=== PATIENT | male | born 1950 | race Caucasian/White ===

== ENCOUNTER 2016-12-25 07:53 | Outpatient (CLI) | payer MEDICARE, BC ==
[~2016-12-25] VITALS: Ht 177.8 cm; Wt 168.2 kg
--- NOTE | ~2016-12-25 | HEMODYNAMI ---
PATIENT:BARRERA WEEKS MEDICAL RECORD: [id number] : 52 LOCATION:D.CAT ADMISSION DATE: 12/25/16 Generatedon:12/25/201610:42 Patient name: BARRERA WEEKS Patient #: [id number] : 1950 Date of study: 12/25/2016 Page: Of Hemodynamic Procedure Report Patient Data Patient Demographics Procedure consent was obtained First Name: BARRERA Gender: Male Last Name: MICKY : 1950 Patient #: [id number] Age: 66 year(s) Race: SSN: [id number] Additional ID: [id number] Contact details [address]: [address] [place] [address] State: [place] City: [place] Zip code: [address] Past Medical History History of disease Date Diagnosis Comments CAD Hypertension PVD Admission Admission Data Admission Date: 12/25/2016 Admission Time: 7:53 Arrival Date: 12/25/2016 Arrival Time: 10:00 Admit Source: Other Insurance Payor: Medicare Height (in.): 70 BSA: 2.71 (m2) Height (cm.): 177.8 BMI: 53.09 (kg/m2) Weight (lbs.): 370 Weight (kg.): 167.83 Lab Results Lab Result Date: 12/25/2016 Lab Result Time: 0:00 Biochemistry Name Units Result Min Max BUN mg/dl 16 --(---*)-- 7 18 CK-MB ng/ml 3 --(---*)-- 0 3.6 Creatinine mg/dl 1 --(--*-)-- 0.6 1.3 Creatinine l 344 --(----)-* 21 215 Kinase Troponin l ng/ml 0.017 --(-*--)-- 0 0.06 CBC Name Units Result Min Max Hemoglobin g/dl 14.7 --(-*--)-- 13.5 17.5 Procedure Procedure Types Cath Procedure Diagnostic Procedure [facility] w/Coronaries Miscellaneous Procedures Moderate Sedation up to 15 minutes Procedure Description Procedure Date Procedure Date: 12/25/2016 Procedure Start Time: 10:32 Procedure End Time: 10:41 Procedure Staff Name Function Kristian Woodward MD Performing Physician Leena Eugene RT Scrub Dee Dee Reyes RN Nurse Adam Prakash RT Monitor Indication Angina Procedure Data Cath Procedure Fluoroscopy Diagnostic fluoroscopy Total fluoroscopy Time: 1.3 time: 1.3 min min Diagnostic fluoroscopy Total fluoroscopy dose: 982 dose: 982 mGy mGy Contrast Material Contrast Material Type Amount (ml) Isovue 300 77 Entry Location Entry Primary Successful Side Size Upsize Upsize Entry Closure Succes sful Closure Location (Fr) 1 (Fr) 2 (Fr) Remarks Device Remarks Femoral Right 5 Fr Exoseal artery Diagnostic catheters Device Type Used For End Catheter Placement Cordis 5Fr Pigtail LV Angiography Catheter (MP) Cordis 5Fr JL 4.0 Left Coronary Catheter (MP) Angiography Cordis 5Fr 3DRC Catheter Right Coronary (MP) Angiography Procedure Complications No complications Procedure Medications Medication Administration Route Dosage Oxygen NC 2 l/min Lidocaine 2% added to field 20 Heparin Flush Bag added to field 2 bags (1000units/500ml NS) 0.9% NaCl I.V. 100 ml/hr Versed I.V. 1 mg Fentanyl I.V. 50 mcg Versed I.V. 1 mg Fentanyl I.V. 50 mcg Versed I.V. 1 mg Fentanyl I.V. 50 mcg Hemodynamics Rest BSA: 2.71 (m2) HGB: 14.7 (g/dl) O2 Consumption: Estimated: 309.83 (ml/min) O2 Co nsumption indexed: Estimated:114.33 (ml/min/m) Heart Rate: 64 (bpm) Snapshots Pre Cath Intra NCS Post Cath Vital Signs Time Heart Resp SPO2 NIBP (mmHg) Rhythm Pain Sedation Rate (ipm) (%) Status Level (bpm) 10:17:14 80 16 97 No Cuff NSR 0 (11) 10(A) , No pain 10:21:14 75 18 98 No Cuff NSR 0 (11) 10(A) , No pain 10:25:42 77 17 94 141/75(97) NSR 0 (11) 10(A) , No pain 10:30:21 79 15 93 135/75(94) NSR 0 (11) 9(A) , No pain 10:34:59 81 22 94 135/72(103) NSR 0 (11) 9(A) , No pain 10:39:34 86 15 94 143/80(98) NSR 0 (11) 10(A) , No pain Medications Time Medication Route Dose Verified Delivered Reason Notes Effe ctiveness by by 10:22:43 Oxygen NC 2 Kristian Buffie used for l/min Trace Reyes RN procedure 10:22:54 Lidocaine 2% added 20ml Kristian Kristian for local to vial Trace Woodward MD anesthetic field 10:23:00 Heparin Flush added 2 Rkistian Kristian used for Bag to bags Trace Woodward MD procedure (1000units/500ml field NS) 10:23:09 0.9% NaCl I.V. 100 Kristian Buffie Per ml/hr Trace Reyes RN physician 10:26:44 Versed I.V. 1 mg Kristian Funez for Trace Reyes RN sedation 10:26:50 Fentanyl I.V. 50 Kristian Buffie for mcg Traec Reyes RN sedation 10:29:20 Versed I.V. 1 mg Kristian Buffie for Trace Reyes RN sedation 10:29:24 Fentanyl I.V. 50 Kristian Buffie for mcg Trace Reyes RN sedation 10:32:44 Versed I.V. 1 mg Kristian Buffie for Trace Reyes RN sedation 10:32:48 Fentanyl I.V. 50 Kristian Buffie for mcg Trace Reyes RN sedation Procedure Log Time Note 10:07:31 Informed consent obtained and on chart 10:07:36 Diagnostic Cath Status : Elective 10:08:38 Indication : Angina 10:08:42 Adam Prakash RT(R) sent for patient. Start room use. 10:08:43 Time tracking: Regular hours 10:08:47 Plan of Care:Hemodynamics will remain stable., Cardiac rhythm will remain stable., Comfort level will be maintained., Respiratory function will remain adequate., Patient/ family verbilizes understanding of procedure., Procedure tolerated without complication., Recovers from procedure without complications.. 10:09:01 Admit Source: Other 10:09:04 Patient Height : 177.8 cm 10:09:09 Patient Weight : 167.83 kg 10:09:16 Arrival Date: 12/25/2016 10:00:00 AM 10:09:28 Insurance Payor : Medicare 10:10:54 Patient received from Pre/Post Procedure Room to CCL 2 Alert and oriented. Tansferred to table in Supine position. 10:10:55 Warm blankets applied, and efrain hugger turned on for patient comfort. 10:10:55 Correct patient and procedure confirmed by team. 10:10:56 ECG and BP/O2 sat monitors applied to patient. 10:16:24 Vital chart was started 10:16:25 Baseline sample Acquired. 10:16:32 Full Disclosure recording started 10:16:38 H&P Date Dictated: 12/18/2016 Within 30 days and on chart., H&P Addendum completed by physician on day of procedure. (MUST COMPLETE FOR ALL OUTPATIENTS). 10:16:41 Pre-procedure instructions explained to patient. 10:16:41 Pre-op teaching completed and patient verbalized understanding. 10:16:43 Family in waiting room. 10:16:44 Patient NPO since Midnight. 10:16:50 Is the patient allergic to Iodine/contrast media? No. 10:16:52 Was the patient premedicated? No 10:22:37 Is patient on blood thinner?Yes 10:22:42 ACC The patient was administered the following blood thiners within the last 24 hours: ACCPlavix 10:22:43 Oxygen 2 l/min NC was administered by Dee Dee Reyes RN; used for procedure; 10:22:44 Patient diabetic? No. 10:22:48 ----Pre-sedation anethsthesia assessment.---- 10:22:51 Previous problem with sedation/anesthesia? No ? 10:22:52 Snore? Yes 10:22:53 Sleep apnea? Yes 10:22:54 Lidocaine 2% 20ml vial added to field was administered by Kristian Woodward MD; for local anesthetic; 10:22:54 Deviated septum? No 10:22:55 Opens mouth fully? Yes 10:22:56 Sticks out tongue? Yes 10:22:58 Airway obstruction? No ? 10:23:00 Heparin Flush Bag (1000units/500ml NS) 2 bags added to field was administered by Kristian Woodward MD; used for procedure; 10:23:00 Dentures? No ? 10:23:02 Pre procedure: right dorsailis pedis pulse 1+ Palpable, but thready & weak; easily obliterated 10:23:05 Patient pain scale 0/10 ?. 10:23:09 0.9% NaCl 100 ml/hr I.V. was administered by Dee Dee Reyes RN; Per physician; 10::10 IV patent on arrival in left hand with 0.9% NaCl at 10ml/hr. 10::43 Right groin area was prepped with chlora-prep and draped in sterile fashion 10:: Alarms reviewed by R. N. :: Sharps counted by scrub and verified by R.N. 10::51 --------ALL STOP TIME OUT------ ::51 Final Timeout: patient, procedure, and site verified with staff and physician. All members of the team are in agreement. 10::53 Right groin site verified by team. 10::00 Physical assessment completed. ASA score P 3 - A patient with severe systemic disease as per Kristian Woodward MD. 10::10 Sedation plan: IV Moderate Sedation Versed, Fentanyl 10::44 Versed 1 mg I.V. was administered by Dee Dee Reyes RN; for sedation; 10::50 Fentanyl 50 mcg I.V. was administered by Dee Dee Reyes RN; for sedation; 10:27:00 Lab Result : BUN 16 mg/dl 10::00 Lab Result : Creatinine 1 mg/dl 10::00 Lab Result : Creatinine Kinase 344 l 10:27:00 Lab Result : CK-MB 3 ng/ml 10::00 Lab Result : Troponin l 0.017 ng/ml 10::00 Lab Result : Hemoglobin 14.7 g/dl 10::20 Versed 1 mg I.V. was administered by Dee Dee Reyes RN; for sedation; 10:29:20 Use device set Femoral Dx 10:29:21 Acist Syringe opened to sterile field. 10:: Bag Decanter opened to sterile field. 10:: Medline Cath Pack opened to sterile field. 10:29:22 Terumo 5Fr [place] Sheath opened to sterile field. 10:29:23 St Richard 260cm J .035 wire opened to sterile field. 10:29:23 Acist Hand Control opened to sterile field. 10:29:24 Fentanyl 50 mcg I.V. was administered by Dee Dee Reyes RN; for sedation; 10:29:24 Acist Manifold opened to sterile field. 10:29:24 Diagnostic Infinity 5Fr Multipack catheter opened to sterile field. 10:29:25 Tegaderm 4 x 4 opened to sterile field. 10:30:53 Zero performed for pressure channel P1 10:31:18 Procedure started. 10:32:42 Local anesthetic to right femoral artery with Lidocaine 2% by Kristian Woodward MD.INITIAL ACCESS ONLY 10:32:44 Versed 1 mg I.V. was administered by Dee Dee Reyes RN; for sedation; 10:32:48 Fentanyl 50 mcg I.V. was administered by Dee Dee Reyes RN; for sedation; 10:32:50 A 5 Fr sheath was inserted into the Right Femoral artery 10:32:55 A Cordis 5Fr Pigtail Catheter (MP) was advanced over the wire and used for LV Angiography. 10:32:58 LV angiography performed. 10:33:03 EF : 55 % 10:33:05 Catheter removed. 10:33:09 A Cordis 5Fr JL 4.0 Catheter (MP) was advanced over the wire and used for Left Coronary Angiography. 10:33:27 LCA angiography performed. 10:33:37 Baseline sample Acquired. 10:33:43 Rhythm: sinus rhythm 10:34:40 Catheter removed. 10:34:46 A Cordis 5Fr 3DRC Catheter (MP) was advanced over the wire and used for Right Coronary Angiography. 10:35:13 RCA angiography performed. 10:36:09 Catheter removed. 10:36:38 Cordis 5Fr Exoseal opened to sterile field. 10:36:52 Sheath removed intact; hemostasis achieved with Exoseal to the Right Femoral artery. 10:36:53 Procedure ended.(Physican Out) 10:37:05 Contrast amount:Isovue 300 77ml. 10:37:12 Fluoroscopy time 01.30 minutes. 10:37:17 Fluoroscopy dose: 982 mGy 10:37:17 Flurop Dose total: 982 10:38:07 Sharps counted by scrub and verified by R.N. 10:38:08 Insertion/operative site no bleeding no hematoma. 10:38:12 Post-op/insertion site Right Femoral artery dressed using a 4 x 4 and Tegaderm. 10:38:15 Post right femoral artery:stable 10:38:16 Post Procedure Pulses reassessed and unchanged 10:38:18 Post procedure: right dorsailis pedis pulse 1+ Palpable, but thready & weak; easily obliterated. 10:38:21 Post procedure rhythm: sinus rhythm 10:38:23 Post procedure instruction explained to patient.Patient verbalizes understanding. 10:38:41 Procedure type changed to Cath procedure, Diagnostic procedure, LHC, LHC w/Coronaries, Miscellaneous Procedures, Moderate Sedation up to 15 minutes 10:38:57 Procedure and supply charges have been captured, reviewed, submitted and are correct. 10:39:01 Procedure Complication : No complications 10:39:03 Vital chart was stopped 10:39:03 See physician's report for complete and final results. 10:39:05 Report given to Pre/Post Procedure Room. 10:39:08 Patient transfered to Pre/Post Procedure Room with Stretcher. 10:41:45 Procedure ended. 10:41:45 Full Disclosure recording stopped 10:41:50 End room use (Document Last) Device Usage Item Name Manufacture Quantity Catalog Hospital Part Current Minimal Lo t# / Number Charge Number Stock Stock Serial# Code Acist Acist 1 84770 [id number] 195557 [id number] 20 Syringe [employer] Bag Microtek 1 2002S 867182 03549 208300 5 Decfake company 2.0 [employer] Inc. Medline Cardinal 1 [id number] 089537 01259 040816 5 Cath Pack Health Terumo 5Fr Terumo 1 [id number] 739252 582768 206284 [address] [place] [address] Richard 1 716009 291245 965409 704742 30 260cm J .035 wire Acist Hand Acist 1 26126 344003 887178 968260 5 Control Medical [employer] Inc Acist Acist 1 41323 202404 104977 747837 5 Manifold Medical [employer] Inc Diagnostic Cardinal 1 [id number] 861623 86294 277385 30 AdMobilizeity [employer] 5Fr Multipack catheter Tegaderm 4 3M 1 1626W 432009 298430 826116 5 x 4 Cordis 5Fr Cardinal 1 914881 5 Pigtail Health Catheter (MP) Cordis 5Fr Cardinal 1 164241 5 JL 4.0 Health Catheter (MP) Cordis 5Fr Cardinal 1 [id number] 5 3D Health Catheter (MP) Cordis 5Fr Cardinal 1 EX500 301566 078484 322061 10 [facility] Health Signature Audit [place] Stage Time Signature Unsigned Intra-Procedure 12/25/2016 Adam Prakash 10:42:13 AM RT(R) Signatures Monitor : Adam Prakash RT Signature : Date : Time : [id number] [place] [address]
[~2016-12-25 07:53] MED LIST: ASPIRIN325 MG PO; ASPIRIN81 MG PO; BAYER CHEWABLE81 MG PO; COUMADIN7.5 MG PO; COZAAR100 MG PO; CYMBALTA30 MG PO; CYMBALTA60 MG PO; DESERYL100 MG PO; DILT-CD180 MG PO; HALCION0.25 MG PO; HYDROCODONE-APA1 TAB PO; LASIX20 MG PO; METOPROLOL TAR100 MG PO; METOPROLOL TART50 MG PO; MIRAPEX1 MG PO; MULTI-DAY VITAM1 TAB PO; NAPROSYN500 MG PO; PLAVIX75 MG PO; PREDNISONE5 MG PO; PRILOSEC20 MG PO; ULTRAM ER200 MG PO; ZOCOR20 MG PO; ZYPREXA5 MG PO
[2016-12-25] MEDS ORDERED: PLAVIX75 MG PO (09:01)
[2016-12-25 09:03] LABS: BASOPHILS 0.2 % (0-2); EOSINOPHILS 2.9 % (0-7); HEMATOCRIT 45.1 % (42.0-54.0); HEMOGLOBIN 14.7 g/dL (13.5-17.5); IMMATURE GRANULOCYTES 0.5 % (0-5); LYMPHOCYTES 17.6 % (15-50); MCH 27.7 pg (26.0-34.0); MCHC 32.6 g/dL (31.0-37.0); MCV 84.9 fL (80.0-100.0); MEAN PLATELET VOLUME 10.8 fL (7.4-10.4); MONOCYTES 10.3 % (2-11); NEUTROPHILS 68.5 % (40-80); PLATELET COUNT 177 10x3/uL (130-400); RBC 5.31 10x6/uL (4.20-6.10); RDW 15.4 % (11.5-14.5); WBC 10.3 10x3/uL (4.8-10.8)
[2016-12-25] MEDS ORDERED: MIRAPEX ER4.5 MG PO (09:05)
[2016-12-25 09:12] VITALS: BP 138/68; Ht 177.8 cm; Wt 168.2 kg
[2016-12-25 09:47] LABS: CALC OSMOLALITY 284 mosm/kg (275-300); CALCIUM 9.7 mg/dL (8.5-10.1); CARBON DIOXIDE 27.2 mmol/L (21.0-32.0); CHLORIDE - SERUM 101 mmol/L (98-107); CREATINE KINASE 344 UL (21-232); GLUCOSE 207 mg/dL (74-106); POTASSIUM - SERUM 4.3 mmol/L (3.5-5.1); SODIUM 139 mmol/L (136-145); TROPONIN-I < 0.017 ng/mL (0.000-0.060); UREA NITROGEN 16 mg/dL (7-18); eGFR NON AFRICAN AMERICAN 80 mL/min (90-120)
--- NOTE | 2016-12-25 11:10 | NUR ---
2L NC, NO RESP DISTRESS NOTED. RIGHT GROIN 5F EXOSEAL CDI, NO BLEEDING OR HEMATOMA NOTED. NO C/O CHEST PAIN OR NAUSEA. VSS. INSTRUCTED PT TO KEEP HEAD FLAT ON PILLOW AND RIGHT LEG STRAIGHT.
--- NOTE | 2016-12-25 11:25 | NUR ---
2L NC, NO RESP DISTRESS NOTED. RIGHT GROIN 5F EXOSEAL CDI, NO BLEEDING OR HEMATOMA NOTED. VSS. NO C/O AT THIS TIME. WILL CONTINUE TO MONITOR.
--- NOTE | 2016-12-25 11:40 | NUR ---
RIGHT GROIN 6F EXOSEAL CDI, NO BLEEDING OR HEMATOMA NOTED. VOIDED 300CC OF CLEAR YELLOW URINE. 2L NC, NO RESP DISTRESS NOTED. VSS.
--- NOTE | 2016-12-25 12:15 | NUR ---
HOB ELEVATED 30 DEGREES. RIGHT GROIN 5F EXOSEAL CDI, NO BLEEDING OR HEMATOMA NOTED.
--- NOTE | 2016-12-25 12:35 | NUR ---
LEFT HAND PIV D/C'D WITH CATHETER INTACT, BAND AID TO SITE. UP TO BEDSIDE TO GET DRESSED.
--- NOTE | 2016-12-25 12:45 | NUR ---
DISCHARGE INSTRUCTIONS GIVEN, VERBALIZED UNDERSTANDING.
--- NOTE | 2016-12-25 12:50 | NUR ---
TAKEN OUT VIA WHEELCHAIR BY CATH CONTRACT LEAD. LEFT FACILTIY WITH FAMILY MEMBER AND ALL PERSONAL BELONGINGS.
--- NOTE | 2016-12-27 08:49 | OP ---
PATIENT NAME: BARRERA WEEKS MEDICAL RECORD: [id number] :52 LOCATION:D.CAT ADMISSION DATE: SURGEON: MARCELO CLINE MD DATE OF OPERATION: 12/25/2016 PROCEDURES: 1. Left heart catheterization. 2. Selective coronary angiography. 3. Left ventriculogram. INDICATION: Angina and coronary artery disease. PROCEDURE: After informed consent was obtained and after detailed explanation of risks, benefits as well as alternative therapies, the patient elected to proceed with angiogram and heart catheterization. The right femoral area was prepped and draped in normal sterile fashion. ____ femoral artery was recannulated via modified Seldinger technique with placement of 6-[place] ____ sheath. All catheters exchanged through this sheath. FINDINGS: Left ventriculogram was performed in standard 30-degree TOLEDO view, reveals good cardiac wall motion throughout all segments. Overall ejection fraction estimated at 60%. SELECTIVE CORONARY ANGIOGRAPHY: 1. Left main showed no significant angiographic disease. 2. Left anterior descending has moderate irregularities, but no flow-limiting stenosis. 3. The left circumflex has mild irregularities, no flow-limiting stenosis with no restenosis of the previously placed stent in the obtuse marginal. 4. Right coronary has previously placed stent. This is widely patent with no significant restenosis. No disease elsewhere throughout the RCA or its branches. OVERALL IMPRESSION: Wide patency of the previously placed stents. No disease elsewhere. Continue medical management of the coronary artery disease and cardiac risk factors. TRANSINT:[id number] Voice Confirmation ID: [id number] DOCUMENT ID: [id number] MARCELO CLINE MD at 0849 CC: [id number] DICTATION DATE: 12/25/16 1041 MEDICAL APPOINTMENT SCHEDULER: 12/25/16 2118 DEP CLI 12/25/16 [place] [id number]
== END 2016-12-25 12:50 | disposition home or self-care (01) ==
LOC: D.CATH 07:53
PROVIDERS: Internal Medicine Interventional Cardiology
DX: I25.119 Atherosclerotic heart disease of native coronary artery with unspecified angina pectoris (principal); Z95.5 Presence of coronary angioplasty implant and graft; Z01.812 Encounter for preprocedural laboratory examination

== ENCOUNTER 2017-08-07 09:02 | Outpatient (CLI) | payer MEDICARE, BC ==
[~2017-08-07] VITALS: Ht 177.8 cm; Wt 167.3 kg
--- NOTE | ~2017-08-07 | HEMODYNAMI ---
PATIENT:BARRERA WEEKS MEDICAL RECORD: [id number] : 52 LOCATION:DDELVIN ADMISSION DATE: 08/07/17 Generatedon:08/07/201712:42 Patient name: BARRERA WEEKS Patient #: [id number] : 1950 Date of study: 08/07/2017 Page: Of Hemodynamic Procedure Report Patient Data Patient Demographics Procedure consent was obtained First Name: BARRERA Gender: Male Last Name: MICKY : 1950 Patient #: [id number] Age: 67 year(s) Race: SSN: [id number] Additional ID: [id number] Contact details [address]: [address] [place] [address] State: [place] City: [place] Zip code: [address] Past Medical History History of disease Date Diagnosis Comments CAD Hypertension PVD Admission Admission Data Admission Date: 08/07/2017 Admission Time: 9:02 Procedure Procedure Types Cath Procedure Diagnostic Procedure C [facility] w/Coronaries FFR/IVUS Intra-Coronary IVUS Initial PCI Procedure Coronary Stent Coronary Stent Initial Miscellaneous Procedures Moderate Sedation up to 30 minutes Procedure Description Procedure Date Procedure Date: 08/07/2017 Procedure Start Time: 12:20 Procedure End Time: 12:37 Procedure Staff Name Function Kristian Woodward MD Performing Physician Leena Eugene RT Monitor Verena Hartley RT Scrub Dee Dee Reyes RN Nurse Procedure Data Cath Procedure Fluoroscopy Diagnostic fluoroscopy Total fluoroscopy Time: 6.3 time: 6.3 min min Diagnostic fluoroscopy Total fluoroscopy dose: dose: 1623 mGy 1623 mGy Contrast Material Contrast Material Type Amount (ml) Isovue 300 123 Entry Location Entry Primary Successful Side Size Upsize Upsize Entry Closure Lee ccessful Closure Location (Fr) 1 (Fr) 2 (Fr) Remarks Device Remarks Radial Right 6 Fr Mechanical artery Short Compression Estimated blood loss: 5 ml Diagnostic catheters Device Type Used For End Catheter Placement DIAGNOSTIC Onsted 110cm 5 Multi-vessel Fr catheter ([id number]) Angiography Procedure Complications No complications Procedure Medications Medication Administration Route Dosage Oxygen NC 2 l/min Lidocaine 2% added to field 20 Heparin Flush Bag added to field 2 bags (1000units/500ml NS) 0.9% NaCl I.V. 100 ml/hr Radial Cocktail I.A. 1 syringe (Verapomil 2mg/Nitro 400mcg/Heparin 1500units) Versed I.V. 1 mg Fentanyl I.V. 50 mcg Versed I.V. 1 mg Fentanyl I.V. 50 mcg Heparin Bolus I.V. 5000 units Versed I.V. 1 mg Fentanyl I.V. 50 mcg Versed I.V. 1 mg Fentanyl I.V. 50 mcg Hemodynamics Rest Heart Rate: 63 (bpm) Pressure Samples Time Site Value (mmHg) Purpose Heart Use Rate(bpm) 12:23 LV 102/50,38 Snapshot 73 Snapshots Pre Cath Intra NCS Post Cath Vital Signs Time Heart Resp SPO2 etCO2 NIBP (mmHg) Rhythm Pain Sedation Rate (ipm) (%) (mmHg) Status Level (bpm) 12:16:47 64 20 95 21.2 132/74(108) NSR 0 (11) 10(A) , No pain 12:21:17 61 18 96 40.8 133/69(99) NSR 0 (11) 10(A) , No pain 12:25:51 66 21 94 31.8 117/61(86) NSR 0 (11) 9(A) , No pain 12:30:16 66 18 94 41.6 130/68(93) NSR 0 (11) 9(A) , No pain 12:34:48 69 18 94 40 120/67(85) NSR 0 (11) 9(A) , No pain 12:39:00 71 23 94 27.2 126/70(96) NSR 0 (11) 10(A) , No pain Medications Time Medication Route Dose Verified Delivered Reason Note s Effectiveness by by 12:05:22 Oxygen NC 2 l/min Kristian Funez used for Trace Reyes RN procedure 12:05:30 Lidocaine 2% added 20ml Kristian Townsend for local to vial Trace Woodward MD anesthetic field 12:05:35 Heparin Flush added 2 bags Kristian Townsend used for Bag to Trace Woodward MD procedure (1000units/500ml field NS) 12:05:45 0.9% NaCl I.V. 100 Kristian Funez Per physician ml/hr Trace Reyes RN 12:21:21 Versed I.V. 1 mg Kristian Pembertonie for sedation Trace Reyes RN 12:21:28 Fentanyl I.V. 50 mcg Kristian Pembertonie for sedation Trace Reyes RN 12:22:12 Radial Cocktail I.A. 1 Kristian Townsend for (Verapomil syringe Taucheo Woodward MD vasodilation 2mg/Nitro 400mcg/Heparin 1500units) 12:23:37 Versed I.V. 1 mg Kristian Funez for sedation Trace Reyes RN 12:23:41 Fentanyl I.V. 50 mcg Kristian Funez for sedation Trace Reyes RN 12:27:02 Fentanyl I.V. 50 mcg Kristian Funez for sedation Trace Reyes RN 12:27:58 Versed I.V. 1 mg Kristian Pembertonie for sedation Trace Reyes RN 12:29:47 Heparin Bolus I.V. 5000 Kristian Pembertonie for veri fied units Trace Reyes RN anticoagulation with dr woodward 12:31:57 Versed I.V. 1 mg Kristian Funez for sedation Trace Reyes RN 12:32:01 Fentanyl I.V. 50 mcg Kristian Funez for sedation Trace Reyes RN Procedure Log Time Note 12:02:31 Diagnostic Cath Status : Elective 12:02:48 Verena Hartley RT(R) sent for patient. Start room use. 12:02:48 Time tracking: Regular hours 12:02:52 Plan of Care:Hemodynamics will remain stable., Cardiac rhythm will remain stable., Comfort level will be maintained., Respiratory function will remain adequate., Patient/ family verbilizes understanding of procedure., Procedure tolerated without complication., Recovers from procedure without complications.. 12:05:22 Oxygen 2 l/min NC was administered by Dee Dee Reyes RN; used for procedure; 12:05:30 Lidocaine 2% 20ml vial added to field was administered by Kristian Woodward MD; for local anesthetic; 12:05:35 Heparin Flush Bag (1000units/500ml NS) 2 bags added to field was administered by Kristian Woodward MD; used for procedure; 12:05:45 0.9% NaCl 100 ml/hr I.V. was administered by Dee Dee Reyes RN; Per physician; 12:08:59 Patient received from Pre/Post Procedure Room to CCL 1 Alert and oriented. Tansferred to table in Supine position. 12:09:00 Warm blankets applied, and efrain hugger turned on for patient comfort. 12:09:01 Correct patient and procedure confirmed by team. 12:09:02 Signed procedure consent form obtained from patient. 12:09:02 ECG and BP/O2 sat monitors applied to patient. 12:15:22 Vital chart was started 12:18:46 Baseline sample Acquired. 12:18:48 Rhythm: sinus rhythm 12:18:58 Full Disclosure recording started 12:19:09 H&P Date Dictated: 07/23/2017 Within 30 days and on chart., H&P Addendum completed by physician on day of procedure. (MUST COMPLETE FOR ALL OUTPATIENTS). 12:19:10 Pre-procedure instructions explained to patient. 12:19:11 Pre-op teaching completed and patient verbalized understanding. 12:19:13 Family in patients room. 12:19:14 Patient NPO since Midnight. 12:19:18 Is the patient allergic to Iodine/contrast media? No. 12:19:19 Was the patient premedicated? No 12:19:21 Is patient on blood thinner?No 12:19:23 Patient diabetic? Yes. 12:19:28 If diabetic: On Metformin? No 12:19:33 Previous problem with sedation/anesthesia? No ? 12:19:34 Snore? Yes 12:19:35 Sleep apnea? Yes 12:19:36 Deviated septum? No 12:19:36 Opens mouth fully? Yes 12:19:37 Sticks out tongue? Yes 12:19:39 Airway obstruction? No ? 12:19:41 Dentures? No ? 12:19:43 Pre procedure: right dorsailis pedis pulse 2+ Normal; easily identifiable; not easily obliterated 12:19:45 Pre procedure: left dorsailis pedis pulse 2+ Normal; easily identifiable; not easily obliterated 12:19:47 Patient pain scale 0/10 \. 12:19:53 IV patent on arrival in left forearm with 0.9% NaCl at [facility]. 12:19:58 Lab results completed and on chart. 12:20:01 Right Radial & Right Groin area was prepped with chlora-prep and draped in sterile fashion 12:20:03 Alarms reviewed by R. N. 12:20:03 Sharps counted by scrub and verified by R.N. 12:20:05 Physician arrived 12:20:05 --------ALL STOP TIME OUT------ 12:20:15 Final Timeout: patient, procedure, and site verified with staff and physician. All members of the team are in agreement. 12:20:17 Right Radial & Right Groin site verified by team. 12:20:20 Physical assessment completed. ASA score P 2 - A patient with mild systemic disease as per Kristian Woodward MD. 12:20:25 Sedation plan: IV Moderate Sedation Medication:Versed, Fentanyl 12:20:31 Use device set Radial Dx or PCI 12:20:32 ACIST Syringe (24880) opened to sterile field. 12:20:33 Medline Cath Pack ([id number]) opened to sterile field. 12:20:33 Bag Decanter (2002S) opened to sterile field. 12:20:34 SHEATH 6FR Slender ([id number]) opened to sterile field. 12:20:34 DIAGNOSTIC WIRE .035 260cm J wire (959490) opened to sterile field. 12:20:35 ACIST Hand Control (91355) opened to sterile field. 12:20:36 ACIST Manifold (17406) opened to sterile field. 12:20:41 Procedure started. 12:20:45 Local anesthetic to right radial artery with Lidocaine 2% by Kristian Woodward MD.INITIAL ACCESS ONLY 12:20:52 A 6 Fr Short sheath was inserted into the Right Radial artery 12:21:21 Versed 1 mg I.V. was administered by Dee Dee Reyes RN; for sedation; 12:21:28 Fentanyl 50 mcg I.V. was administered by Dee Dee Reyes RN; for sedation; 12:21:46 A DIAGNOSTIC Onsted 110cm 5 Fr catheter ([id number]) was advanced over the wire and used for Multi-vessel Angiography. 12:21:55 Zero performed for pressure channel P1 12:22:01 Zero performed for pressure channel P1 12:22:06 Zero performed for pressure channel P1 12:22:12 Radial Cocktail (Verapomil 2mg/Nitro 400mcg/Heparin 1500units) 1 syringe I.A. was administered by Kristian Woodward MD; for vasodilation; 12:23:18 LV hemodynamics recorded. 12:23:20 LV gram done using TOLEDO 12::22 Injector settings: Ml/sec: 5, Volume: 15, 12::27 EF : 50 % 12:23:37 Versed 1 mg I.V. was administered by Dee Dee Reyes RN; for sedation; 12::41 Fentanyl 50 mcg I.V. was administered by Dee Dee Reyes RN; for sedation; 12::48 RCA angiography performed. 12::56 Injector settings: Ml/sec: 3, Volume: 6, 12:24:55 LCA angiography performed. 12::58 Injector settings: Ml/sec: 3, Volume: 6, 12:25:28 GUIDE 6FR AR 2.0 SH catheter ([id number]) opened to sterile field. 12:25:29 [facility] [place] IVUS Catheter ([id number]) opened to sterile field. 12:25:29 INFLATOR [place] BasixCompak (HG6594) opened to sterile field. 12:25:38 Catheter removed. 12:25:39 Proceeding to intervention. 12:25:46 6 Fr ar 2 sh guide catheter was inserted over the wire 12:26:12 CHOICE PT Extra Support 182cm wire ([id number]) opened to sterile field. 12:27:01 choice pt wire advanced. 12:27:02 Fentanyl 50 mcg I.V. was administered by Dee Dee Reyes RN; for sedation; 12::58 Versed 1 mg I.V. was administered by Dee Dee Reyes RN; for sedation; 12:28:01 IVUS catheter advanced over wire. 12:29:47 Heparin Bolus 5000 units I.V. was administered by Dee Dee Reyes RN; for anticoagulation; verified with dr woodward 12::24 IVUS pass to RCA lesion performed. 12:: IVUS catheter removed over wire. 12::57 Versed 1 mg I.V. was administered by Dee Dee Reyes RN; for sedation; 12:32:01 Fentanyl 50 mcg I.V. was administered by Dee Dee Reyes RN; for sedation; 12:33:54 Inflation Number: 1 A INTEGRITY RX 3.0 x 18 stent ([id number]) was prepped and advanced across the Prox RCA. The stent was deployed at 15 JENNIFER for 0:10 (min:sec). 12:34:39 Stent catheter was removed intact over wire. 12:34:39 Wire removed. 12:34:39 Guide catheter removed. 12:34:47 TR BAND Large ([id number]) opened to sterile field. 12:35:32 Sheath removed intact; hemostasis achieved with Mechanical Compression to the Right Radial artery. 12:35:34 Procedure ended.(Physican Out) 12:36:15 Fluoroscopy time 06.30 minutes. 12:36:20 Fluoroscopy dose: 1623 mGy 12:36:20 Flurop Dose total: 1623 12:36:23 Contrast amount:Isovue 300 123ml. 12:36:30 Sharps counted by scrub and verified by R.N. 12:36:32 TR band inflated with 10cc of air. 12:36:34 Insertion/operative site no bleeding no hematoma. 12:36:38 Post right radial artery:stable 12:36:39 Post Procedure Pulses reassessed and unchanged 12:36:42 Post procedure rhythm: unchanged. 12:36:44 Estimated blood loss: 5 ml 12:36:46 Post procedure instruction explained to patient.Patient verbalizes understanding. 12:36:46 Patient needs reinforcement of post procedure teaching. 12:37:11 Procedure type changed to Cath procedure, Diagnostic procedure, LHC, LHC w/Coronaries, FFR/IVUS, Intra-Coronary IVUS Initial, PCI procedure, Coronary Stent, Coronary Stent Initial, Miscellaneous Procedures, Moderate Sedation up to 30 minutes 12:37:13 Procedure and supply charges have been captured, reviewed, submitted and are correct. 12:37:17 Procedure Complication : No complications 12:37:19 Vital chart was stopped 12:37:19 See physician's report for complete and final results. 12:37:31 Report given to Pre/Post Procedure Room. 12:37:35 Patient transfered to Pre/Post Procedure Room with Stretcher. 12:37:37 Procedure ended. 12:37:37 Full Disclosure recording stopped 12:37:43 ACC-PCI Only Patient was given prescriptions, or instructed by Kristian Woodward MD to start/continue the following medications upon discharge: Plavix 12:37:44 End room use (Document Last) Intervention Summary Intervention Notes Time ActionType Lesion and Equipment Action# Pressure Duration Attributes Used 12:33:54 Place stent Prox RCA INTEGRITY RX 1 15 00:10 3.0 x 18 stent ([id number]) Device Usage Item Name Manufacture Quantity Catalog Number Hospital Part Current Mini [facility] Lot# / Charge Number Stock Stock Serial# Code ACIST Acist 1 06880 065127 715885 026656 20 Syringe Medical (80358) Systems Inc Medline Cath Cardinal 1 [id number] 701575 24417 189231 5 Pack Health ([id number]) Bag Decanter Microtek 1 2001S 464154 77574 177451 5 () Medical Inc. SHEATH 6FR Terumo 1 [id number] 975984 787710 824124 40 Slender ([id number]) DIAGNOSTIC [facility] 1 182489 687338 821554 046308 30 WIRE .035 260cm J wire (966414) ACIST Hand Acist 1 41489 688185 169754 725722 5 Control Medical (90908) Systems Inc ACIST Acist 1 28980 377091 886225 219893 5 Manifold Medical (30249) Systems Inc DIAGNOSTIC Terumo 1 405013 665123 774650 746035 5 Onsted 110cm 5 Fr catheter (235427) GUIDE 6FR AR Medtronic 1 [id number] 374709 00514 356158 1 2.0 SH catheter ([id number]) [facility] 1 [id number] 112200 194371 066161 8 [place] IVUS Catheter (30760I) INFLATOR [facility] 1 ZL0179 305556 948643 834332 15 [facility] BasixCompak (RK2693) CHOICE PT [place] 1 [id number] 258795 139203 250846 5 Extra Scientific Support 182cm wire ([id number]) INTEGRITY RX Medtronic 1 [id number] 356011 826493 150925 5 [id number] 3.0 x 18 stent ([id number]) TR BAND Terumo 1 [id number] 051605 788989 274259 40 Large ([id number]) Signature Audit [place] Stage Time Signature Unsigned Intra-Procedure 08/07/2017 Leena Eugene 12:42:30 PM RT(R) Signatures Monitor : Leena Eugene RT Signature : Date : Time : [address] [place] [address]
--- NOTE | ~2017-08-07 | OP ---
PATIENT NAME: BARRERA WEEKS MEDICAL RECORD: [id number] :52 LOCATION:D.CAT ADMISSION DATE: SURGEON: MACRELO CLINE MD DATE OF OPERATION: 08/07/2017 PROCEDURES: 1. PTCA stent to RCA. 2. Intravascular ultrasound to RCA. 3. Left heart catheterization. 4. Selective coronary angiography. 5. Left ventriculogram. INDICATION: Angina and coronary artery disease. PROCEDURE IN DETAIL: After informed consent was obtained and after detailed explanation of the risks, benefits as well as alternative therapies, the patient elected to proceed with angiogram and angioplasty. The right radial area was prepped and draped in normal sterile fashion. Right radial artery was cannulated via modified Seldinger technique with placement of 6-Bulgarian sheath. All catheters were exchanged through this sheath. FINDINGS: The left ventriculogram was performed in standard 30-degree TOLEDO view, reveals good wall motion throughout all segments. Overall ejection fraction 55%. SELECTIVE CORONARY ANGIOGRAPHY: 1. Left main showed no significant angiographic disease. 2. Left anterior descending has previously placed stents, these are widely patent with no significant restenosis. No disease elsewhere throughout its LAD or its branches. 3. Left circumflex has mild irregularities, but no flow-limiting stenosis. 4. Right coronary artery has 78% proximally confirmed by intravascular ultrasound. PTCA STENT OF THE RIGHT CORONARY: The stent used was 3.0 x 15 mm Integrity. Result was 0% residual stenosis. OVERALL IMPRESSION: Successful percutaneous transluminal coronary angioplasty stent of the right coronary artery going from 78% initial stenosis confirmed by intravascular ultrasound to 0% residual stenosis. TRANSINT:[id number] Voice Confirmation ID: [id number] DOCUMENT ID: [id number] MARCELO CLINE MD at 1025 CC: [id number] DICTATION DATE: 08/07/17 1237 DIRECTOR SPEECH: 08/07/17 1341 DEP CLI 08/07/17 [place] [id number]
[~2017-08-07 09:02] MED LIST changes: +MIRAPEX ER4.5 MG PO
[2017-08-07] MEDS ORDERED: GLUCOPHAGE500 MG PO (09:39)
[2017-08-07] MEDS ORDERED: PLAVIX75 MG PO (09:41)
[2017-08-07 09:52] VITALS: BP 155/68; Ht 177.8 cm; Wt 167.3 kg
[2017-08-07 10:02] LABS: BASOPHILS 0.1 % (0-2); EOSINOPHILS 3.8 % (0-7); HEMATOCRIT 44.3 % (42.0-54.0); HEMOGLOBIN 14.5 g/dL (13.5-17.5); IMMATURE GRANULOCYTES 0.6 % (0-5); LYMPHOCYTES 11.5 % (15-50); MCH 28.3 pg (26.0-34.0); MCHC 32.7 g/dL (31.0-37.0); MCV 86.5 fL (80.0-100.0); MEAN PLATELET VOLUME 11.3 fL (7.4-10.4); MONOCYTES 6.1 % (2-11); NEUTROPHILS 77.9 % (40-80); PLATELET COUNT 167 10x3/uL (130-400); RBC 5.12 10x6/uL (4.20-6.10); RDW 14.8 % (11.5-14.5)
[2017-08-07 10:06] LABS: ANION GAP 14.2 mmol/L (8-16); CALCIUM 9.2 mg/dL (8.5-10.1); CARBON DIOXIDE 27.2 mmol/L (21.0-32.0); CREATININE - SERUM 1.1 mg/dL (0.6-1.3); POTASSIUM - SERUM 4.4 mmol/L (3.5-5.1)
[2017-08-07 10:17] LABS: INR 1.01 (0.85-1.17); PROTIME 12.9 SECONDS (11.6-15.0)
== END 2017-08-07 16:40 | disposition home or self-care (01) ==
LOC: D.CATH 09:02
PROVIDERS: Internal Medicine Interventional Cardiology
DX: I25.119 Atherosclerotic heart disease of native coronary artery with unspecified angina pectoris (principal); I10 Essential (primary) hypertension; E78.5 Hyperlipidemia, unspecified; R94.30 Abnormal result of cardiovascular function study, unspecified; Z01.812 Encounter for preprocedural laboratory examination

== ENCOUNTER 2017-12-10 02:47 | Inpatient (IN) | payer MEDICARE, BC ==
[~2017-12-10] VITALS: Ht 177.8 cm; Wt 168.2 kg
--- NOTE | ~2017-12-10 | DS ---
PATIENT:BARRERA KULKARNI :52 MEDICAL RECORD: [id number] DISCHARGE SUMMARY ADMISSION DATE: 12/10/17 DISCHARGE DATE: 12/11/17 DIAGNOSES: 1. Fluid overload, pulmonary edema and lower extremity edema. 2. Morbid obesity. 3. Diastolic dysfunction, congestive heart failure. 4. Hypertension. 5. Coronary artery disease. HOSPITAL COURSE: Mr. Kulkarni presents with shortness of breath and lower extremity edema. Echocardiogram showed normal systolic function and normal valvular structures, normal pulmonary pressures, but he does have diastolic dysfunction as well as morbid obesity, contributing to his fluid overload state. He received IV diuresis, marked improvement in his respiratory status, marked improvement in his lower extremity edema, was discharged home with the addition of Lasix, potassium to his medical regimen. Follow up with [facility] in 1 month. TRANSINT:[id number] Voice Confirmation ID: [id number] DOCUMENT ID: [id number] MARCELO CLINE MD at 1711 CC: [id number] DICTATION DATE: 12/11/17914 TECHNICAL SALES CONSULTANT: 12/11/17 1327 DIS IN 12/11/17 [place] [id number] [place] [address]
--- NOTE | ~2017-12-10 | HP ---
PATIENT: BARRERA WEEKS MEDICAL RECORD: [id number] ACCOUNT: [id number] LOCATION:[address] : 52 ADMISSION DATE: 12/10/17 HISTORY AND PHYSICAL EXAMINATION DIAGNOSES: 1. Shortness of breath, dyspnea on exertion. 2. Pulmonary edema. 3. Obesity. 4. Lower extremity edema. 5. Hypertension. 6. Coronary artery disease. 7. Previous percutaneous transluminal coronary angioplasty stent. 8. History of deep vein thrombosis, on Coumadin. 9. Hyperlipidemia, on simvastatin. 10. Rfy-ftjyufg-awxcapymo diabetes. HISTORY OF PRESENT ILLNESS: This is a gentleman known to us with a past history of coronary artery disease. Last cardiac intervention was in July. He has not had chest pain, just increasing shortness of breath. His chest x-ray is compatible with pulmonary edema. His last echocardiogram showed a normal ejection fraction at 65%. He did not have pulmonary hypertension. He does have diastolic dysfunction. PHYSICAL EXAMINATION: GENERAL APPEARANCE: Well-nourished, well-developed, appears stated age. Level of distress, comfortable. PSYCHIATRIC: Mental status, alert, normal affect. Orientation, oriented to time, place and person. EYES: Lids and conjunctiva, noninjected. No discharge, no pallor. ENT: Lips, teeth, gums, normal dentition. Oropharynx, no cyanosis, no pallor. NECK: Carotid arteries, bilateral normal upstroke, no bruits, no thrills. JUGULAR VEINS: No jugular venous pressure or distention. CERVICAL LYMPH NODES: Nontender, nonenlarged. THYROID: Not enlarged. Nontender. No nodules. LUNGS: Respiratory effort, unlabored. CHEST: Normal curvature. No thoracic deformity. No chest wall tenderness. Percussion, resonant. Auscultation, clear. No wheezes, no rales, no rhonchi. CARDIOVASCULAR: Precordial exam, nondisplaced. No heaves or pericardial thrills. Rate and rhythm, regular. Heart sounds, normal S1, normal S2. No S3, no gallop, no rub. Systolic murmur, not heard. Diastolic murmur, not heard. EXTREMITIES: No cyanosis, no edema. Peripheral pulses, full and equal in all extremities, except as noted. No bruits appreciated. ABDOMEN: Soft, nondistended. Normal aorta. No bruit. Nontender. No masses. Liver, nontender, no hepatomegaly. Spleen, nontender, no splenomegaly. MUSCULOSKELETAL: No joint tenderness. No joint swelling. No erythema. NEUROLOGICAL: Normal gait, normal strength, normal tone. SKIN: Warm and dry. OVERALL IMPRESSION: Most likely his pulmonary edema is secondary to diastolic dysfunction. At this time, he has no signs or symptoms of ischemia. His EKG is with no changes. Troponin is normal. We will put him on Lasix for diuresis. He is not on a daily water pill. We would probably discharge him on Lasix as well for ongoing therapy for the diastolic dysfunction. HISTORY AND PHYSICAL [id number] BARRERA WEEKS TRANSINT:[id number] Voice Confirmation ID: [id number] DOCUMENT ID: [id number] MARCELO CLINE MD at 1711 CC: [id number] DICTATION DATE: 12/10/17 1016 SLASHER OPERATOR: 12/10/17 1035 DIS IN 12/11/17 [place] [address] [place] [address]
--- NOTE | ~2017-12-10 | EC ---
PATIENT:BARRERA WEEKS DATE OF SERVICE: 12/10/17 SEX: M MEDICAL RECORD: [id number] DATE OF : 52 LOCATION:D.M2 D.213 AGE OF PATIENT: 67 ADMISSION DATE: 12/10/17 REFERRING PHYSICIAN: INTERPRETING PHYSICIAN: MARCELO WOODWARD MD ECHOCARDIOGRAM REPORT ECHO CHARGES 4 ECHO COMPLETE Date: 12/10 CLINICAL DIAGNOSIS: PULM EDEMA ECHOCARDIOGRAPHIC MEASUREMENTS (adult normal given) AC root (d.<3.7cm) 3.7 cm LV Septum d (<1.2 cm> 1.7 cm Valve Excursion 1.9 cm LV Septum (systole) 2.2 cm Left Atria (s.<4.0cm> 4.5 cm LVPW d(<1.2cm) 2.0 cm RV (d.<2.3cm) 4.5 cm LVPW (sytole) 2.2 cm LV diastole(<5.6CM) 4.8 cm MV E-F(>70mm/sec) cm LV systole 3.7 cm LVOT Diameter 2.3 cm MV exc.(>10mm) 1.6 cm Est.ejection fraction (50-75%) % DOPPLER: LVIT cm/sec A 76.0 cm/sec E 94.0 cm/sec LA cm/sec RVSP 22 mmHg LVOT 105 cm/sec AOP1/2T m/s Asc. Ao 142 cm/sec RVOT cm/sec RA cm/sec PA cm/sec AV Gradient Peak 8.09 mmHg AV Mean 4.04 mmHg AV Area 3.1 cm MV Gradient Peak 5.52 mmHg MV Mean 2.30 mmHg MV Area cm COMMENTS: Head Baker: Ernie LAW Clay Stain Mixer: 1 Dr. Woodward TAPE# PACS Pericardial Effusion N DATE OF SERVICE: ECHOCARDIOGRAM FINDINGS: 1. Left ventricular chamber size is within normal limits. Left ventricular systolic function is normal. Overall ejection fraction estimated at 55% to 60%. 2. Left atrium is enlarged at 4.5 cm. Right atrium and right ventricle chamber sizes are as well moderately dilated. 3. Valvular structures have normal structure and motion. ECHOCARDIOGRAM REPORT [id number] BARRERA WEEKS 4. Doppler interrogation reveals trace mitral regurgitation, trace tricuspid regurgitation, no other valvular insufficiency or stenosis. Pulmonary systolic pressure is estimated at 22 mmHg. 5. No evidence of pericardial effusion or left ventricular thrombus. TRANSINT:[id number] Voice Confirmation ID: [id number] DOCUMENT ID: [id number] MARCELO WOODWARD MD at 1711 CC: [id number] DICTATION DATE: 12/10/172110 MILK TREATER: 12/10/172213 DIS IN 12/11/17 [facility] [address] [place] [id number]
[~2017-12-10 02:47] MED LIST changes: +GLUCOPHAGE500 MG PO
[2017-12-10 05:01] LABS: BASOPHILS 0.3 % (0-2); EOSINOPHILS 2.3 % (0-7); HEMATOCRIT 42.3 % (42.0-54.0); HEMOGLOBIN 13.6 g/dL (13.5-17.5); IMMATURE GRANULOCYTES 0.5 % (0-5); MCH 28.2 pg (26.0-34.0); MCHC 32.2 g/dL (31.0-37.0); MCV 87.6 fL (80.0-100.0); MEAN PLATELET VOLUME 11.7 fL (7.4-10.4); NEUTROPHILS 61.9 % (40-80); PLATELET COUNT 171 10x3/uL (130-400); RBC 4.83 10x6/uL (4.20-6.10); RDW 15.2 % (11.5-14.5)
[2017-12-10 05:12] LABS: ALKALINE PHOSPHATASE 62 U/L (46-116); ALT (SGPT) 49 U/L (10-68); BILIRUBIN - TOTAL 0.51 mg/dL (0.2-1.3); CALC OSMOLALITY 294 mosm/kg (275-300); CARBON DIOXIDE 25.3 mmol/L (21.0-32.0); CHLORIDE - SERUM 107 mmol/L (98-107); POTASSIUM - SERUM 4.4 mmol/L (3.5-5.1); PROTEIN - SERUM 6.4 g/dL (6.4-8.2); SODIUM 144 mmol/L (136-145); UREA NITROGEN 17 mg/dL (7-18); eGFR NON AFRICAN AMERICAN 79 mL/min (90-120)
[2017-12-10 05:14] LABS: GLUCOSE 200 mg/dL (74-106)
[2017-12-10 05:20] LABS: PRO BNP 780 pg/mL (0-125)
[2017-12-10 05:47] LABS: APPEARANCE CLEAR (CLEAR); BILIRUBIN NEGATIVE (NEGATIVE); COLOR YELLOW (YELLOW); GLUCOSE 100 mg/dL (NEGATIVE); KETONE NEGATIVE (NEGATIVE); NITRITE NEGATIVE (NEGATIVE); PROTEIN NEGATIVE (NEGATIVE); UROBILINOGEN NORMAL (NORMAL)
[2017-12-10 05:48] LABS: BACTERIA FEW /hpf (NONE SEEN); EPITHELIAL CELLS 0-5 /hpf (0-5); RED CELLS - URINE NONE SEEN /hpf (0-5); WHITE CELLS - URINE 0-5 /hpf (0-5)
[2017-12-10 06:46] LABS: INR 1.3 (0.85-1.17); PROTIME 15.7 SECONDS (11.6-15.0)
[2017-12-10 20:00] VITALS: BP 122/65
[2017-12-10] MEDS ORDERED: DYAZIDE 37.5/251 CAP PO (20:18)
[2017-12-10] MEDS ORDERED: GLIMEPIRIDE4 MG PO (20:18)
[2017-12-11] VITALS: BP 118/30
[2017-12-11 06:10] LABS: BASOPHILS 0.2 % (0-2); EOSINOPHILS 4.1 % (0-7); HEMATOCRIT 41.3 % (42.0-54.0); HEMOGLOBIN 13.3 g/dL (13.5-17.5); IMMATURE GRANULOCYTES 0.3 % (0-5); LYMPHOCYTES 30.7 % (15-50); MCH 28.2 pg (26.0-34.0); MCHC 32.2 g/dL (31.0-37.0); MCV 87.7 fL (80.0-100.0); MEAN PLATELET VOLUME 10.8 fL (7.4-10.4); MONOCYTES 8.9 % (2-11); NEUTROPHILS 55.8 % (40-80); PLATELET COUNT 155 10x3/uL (130-400); RBC 4.71 10x6/uL (4.20-6.10); RDW 15.1 % (11.5-14.5); WBC 9.9 10x3/uL (4.8-10.8)
[2017-12-11 06:53] LABS: CALC OSMOLALITY 287 mosm/kg (275-300); CALCIUM 8.7 mg/dL (8.5-10.1); CARBON DIOXIDE 28.4 mmol/L (21.0-32.0); CHLORIDE - SERUM 105 mmol/L (98-107); CREATININE - SERUM 0.8 mg/dL (0.6-1.3); POTASSIUM - SERUM 3.9 mmol/L (3.5-5.1); SODIUM 143 mmol/L (136-145); UREA NITROGEN 15 mg/dL (7-18); eGFR NON AFRICAN AMERICAN > 90 mL/min (90-120)
[2017-12-11 06:55] LABS: GLUCOSE 140 mg/dL (74-106)
[2017-12-11 08:07] VITALS: BP 118/30; Ht 177.8 cm; Wt 168.2 kg
[2017-12-11 08:22] VITALS: BP 143/73
[2017-12-11] MEDS ORDERED: LASIX40 MG PO (10:39)
[2017-12-11] MEDS ORDERED: K-TAB10 MEQ PO (10:39)
== END 2017-12-11 12:25 | disposition home or self-care (01) | DRG 292 ==
LOC: D.ER 02:47 → D.EDHOLD 07:01 → D.M2 16:20
PROVIDERS: Family Medicine
DX: I11.0 Hypertensive heart disease with heart failure (principal); Z68.43 Body mass index [BMI] 50.0-59.9, adult; E11.9 Type 2 diabetes mellitus without complications; I50.30 Unspecified diastolic (congestive) heart failure; E66.01 Morbid (severe) obesity due to excess calories; I25.10 Atherosclerotic heart disease of native coronary artery without angina pectoris; Z95.1 Presence of aortocoronary bypass graft; E78.5 Hyperlipidemia, unspecified; Z86.718 Personal history of other venous thrombosis and embolism; Z79.01 Long term (current) use of anticoagulants

== ENCOUNTER 2018-09-09 07:26 | Outpatient (CLI) | payer MEDICARE, BC ==
[~2018-09-09] VITALS: Ht 177.8 cm; Wt 168.2 kg
--- NOTE | ~2018-09-09 | HEMODYNAMI ---
PATIENT:BARRERA WEEKS MEDICAL RECORD: [id number] : 52 LOCATION:[facility]iles[facility] ADMISSION DATE: 09/09/18 Generatedon:09/09/20189:56 Patient name: BARRERA WEEKS Patient #: [id number] : 1950 Date of study: 09/09/2018 Page: Of Hemodynamic Procedure Report Patient Data Patient Demographics Procedure consent was obtained First Name: BARRERA Gender: Male Last Name: MICKY : 1950 Patient #: [id number] Age: 68 year(s) Race: SSN: [id number] Additional ID: [id number] Contact details [address]: [address] [place] [address] State: [place] City: [place] Zip code: [address] Past Medical History History of disease Date Diagnosis Comments CAD Hypertension PVD Allergies: No known allergies Admission Admission Data Admission Date: 09/09/2018 Admission Time: 7:26 Height (in.): 70 BSA: 2.75 (m2) Height (cm.): 177.8 BMI: 54.67 (kg/m2) Weight (lbs.): 381 Weight (kg.): 172.82 Lab Results Lab Result Date: 09/09/2018 Lab Result Time: 0:00 Biochemistry Name Units Result Min Max BUN mg/dl 25 --(----)-* 7 18 Creatinine mg/dl 0.9 --(-*--)-- 0.6 1.3 CBC Name Units Result Min Max Hematocrit % 45.2 --(-*--)-- 42 54 Hemoglobin g/dl 14.9 --(-*--)-- 13.5 17.5 Procedure Procedure Types Cath Procedure Diagnostic Procedure [facility] w/Coronaries FFR/IVUS Intra-Coronary IVUS Initial Sedation Charges Moderate Sedation up to 15 minutes PCI Procedure Coronary Stent Coronary Stent Initial Procedure Description Procedure Date Procedure Date: 09/09/2018 Procedure Start Time: 9:35 Procedure End Time: 9:54 Procedure Staff Name Function Kristian Woodward MD Performing Physician Gerhard Bullock RT Monitor Candida Serna RT Scrub Dee Dee Reyes RN Nurse Crow Storey RN Revenue Inspector Procedure Data Cath Procedure Fluoroscopy Diagnostic fluoroscopy Total fluoroscopy Time: 6.6 time: 6.6 min min Diagnostic fluoroscopy Total fluoroscopy dose: dose: 1769 mGy 1769 mGy Contrast Material Contrast Material Type Amount (ml) Isovue 300 146 Entry Location Entry Primary Successful Side Size Upsize Upsize Entry Closure Lee ccessful Closure Location (Fr) 1 (Fr) 2 (Fr) Remarks Device Remarks Radial Right 6 Fr Mechanical artery Short Compression Estimated blood loss: 10 ml Diagnostic catheters Device Type Used For End Catheter Placement DIAGNOSTIC [place] 110cm 5 Procedure Fr catheter ([id number]) Procedure Complications No complications Procedure Medications Medication Administration Route Dosage Oxygen etCO2 Nasal cannula 2 l/min Lidocaine 2% added to field 20 Heparin Flush Bag added to field 2 bags (1000units/500ml NS) Radial Cocktail I.A. 1 syringe (Verapomil 2mg/Nitro 400mcg/Heparin 1500units) 0.9% NaCl I.V. 100 ml/hr Versed I.V. 2 mg Fentanyl I.V. 100 mcg Versed I.V. 2 mg Fentanyl I.V. 100 mcg Heparin Bolus I.V. 4000 units Integrilin (Bolus I.V. 11.3 ml 2mg/ml) Versed I.V. 2 mg Fentanyl I.V. 100 mcg Plavix P.O. 600 mg Hemodynamics Rest BSA: 2.75 (m2) HGB: 14.9 (g/dl) O2 Consumption: Estimated: 319.74 (ml/min) O2 Co nsumption indexed: Estimated:116.27 (ml/min/m) Heart Rate: 70 (bpm) Snapshots Pre Cath Intra NCS Post Cath Vital Signs Time Heart Resp SPO2 etCO2 NIBP (mmHg) Rhythm Pain Sedation Rate (ipm) (%) (mmHg) Status Level (bpm) 9:25:47 70 18 93 35.5 154/92(114) NSR 0 (11) 10(A) , No pain 9:30:01 69 15 94 40.8 148/83(98) NSR 0 (11) 10(A) , No pain 9:34:15 69 15 94 20.4 138/77(96) NSR 0 (11) 10(A) , No pain 9:38:25 65 19 93 43.1 102/64(79) NSR 0 (11) 9(A) , No pain 9:43:18 75 16 93 30.2 127/71(96) NSR 0 (11) 9(A) , No pain 9:47:25 73 19 92 0 127/71(102) NSR 0 (11) 9(A) , No pain 9:51:35 76 16 94 9.8 133/66(90) NSR 0 (11) 10(A) , No pain Medications Time Medication Route Dose Verified Delivered Reason Note s Effectiveness by by 9:24:10 Oxygen etCO2 2 l/min Kristian Buffie used for Nasal Trace Reyes RN procedure cannula 9:24:17 Lidocaine 2% added 20ml Kristian Kristian for local to vial Trace Woodward MD anesthetic field 9:24:23 Heparin Flush added 2 bags Kristianmarc Townsend used for Bag to Trace Woodward MD procedure (1000units/500ml field NS) 9:31:29 0.9% NaCl I.V. 100 Kristian Buffie Per physician ml/hr Trace Reyes RN 9:33:47 Versed I.V. 2 mg Kristian Buffie for sedation Trace Reyes RN 9:33:52 Fentanyl I.V. 100 mcg Kristian Buffie for sedation Trace Reyes RN 9:36:14 Radial Cocktail I.A. 1 Kristian Buffie for (Verapomil syringe Trace Reyes RN vasodilation 2mg/Nitro 400mcg/Heparin 1500units) 9:38:22 Versed I.V. 2 mg Kristian Buffie for sedation Trace Reyes RN 9:38:25 Fentanyl I.V. 100 mcg Kristian Buffie for sedation Trace Reyes RN 9:42:23 Heparin Bolus I.V. 4000 Kristian Buffie for veri fied units Trace Reyes RN anticoagulation with dr woodward 9:43:53 Integrilin I.V. 11.3 ml Kristian Buffie for Wast ed (Bolus 2mg/ml) Trace Reyes RN antiplatelet 8.7 ml therapy of vial 9:48:40 Versed I.V. 2 mg Kristian Buffie for sedation Trace Reyes RN 9:48:44 Fentanyl I.V. 100 mcg Kristian zapata sedation Traec Reyes RN 9:55:13 Plavix P.O. 600 mg Kristian Reyes RN antiplatelet therapy Procedure Log Time Note 9:03:22 Signed procedure consent form obtained from patient. 9:03:24 Diagnostic Cath status Elective 9:03:25 Time tracking: Regular hours (M-F 7:00 - 5:00) 9:03:32 Plan of Care:Hemodynamics will remain stable., Cardiac rhythm will remain stable., Comfort level will be maintained., Respiratory function will remain adequate., Patient/ family verbilizes understanding of procedure., Procedure tolerated without complication., Recovers from procedure without complications.. 9:04:54 Patient Height : 70 inches 9:05:02 Patient Weight : 381 lbs 9:06:37 H&P Date Dictated: 09/04/2018 Within 30 days and on chart., H&P Addendum completed by physician on day of procedure. (MUST COMPLETE FOR ALL OUTPATIENTS). 9:06:43 Patient allergic to No known allergies 9:07:25 Crow Storey RN sent for patient. Start room use. 9:08:15 Lab Result : BUN 25 mg/dl 9:08:15 Lab Result : Hemoglobin 14.9 g/dl 9:08:15 Lab Result : Creatinine 0.9 mg/dl 9:08:15 Lab Result : Hematocrit 45.2 % 9:13:36 Patient received from Pre/Post Procedure Room to CCL 1 Alert and oriented. Tansferred to table in Supine position. 9:13:37 Warm blankets applied, and efrain hugger turned on for patient comfort. 9:13:38 Correct patient and procedure confirmed by team. 9:13:38 ECG and BP/O2 sat monitors applied to patient. 9:24:10 Oxygen 2 l/min etCO2 Nasal cannula was administered by Dee Dee Reyes RN; used for procedure; 9:24:17 Lidocaine 2% 20ml vial added to field was administered by Kristian Woodward MD; for local anesthetic; 9:24:23 Heparin Flush Bag (1000units/500ml NS) 2 bags added to field was administered by Kristain Woodward MD; used for procedure; 9:24:42 Vital chart was started 9:24:43 Baseline sample Acquired. 9:24:46 Rhythm: sinus rhythm 9:24:47 Full Disclosure recording started 9:24:48 Pre-procedure instructions explained to patient. 9:24:48 Pre-op teaching completed and patient verbalized understanding. 9:24:51 Family in waiting room. 9:24:53 Patient NPO since Midnight. 9:24:59 Is the patient allergic to Iodine/contrast media? No. 9:25:00 Is patient on blood thinner?Yes 9:25:01 Patient diabetic? Yes. 9:25:03 If diabetic: On Metformin? No 9:25:05 Previous problem with sedation/anesthesia? No ? 9:25:06 Snore? Yes 9:25:07 Sleep apnea? Yes 9:25:08 Deviated septum? No 9:25:09 Opens mouth fully? Yes 9:25:09 Sticks out tongue? Yes 9:25:16 Airway obstruction? Yes possible COPD 9:25:18 Dentures? No ? 9:25:21 Modified Santos's test Ulnar < 7 seconds 9:25:22 Patient pain scale 0/10 ?. 9:25:27 IV patent on arrival in left antecubital with 0.9% NaCl at KVO. 9:25:29 Lab results completed and on chart. 9:25:31 Right Radial & Right Groin area was prepped with chlora-prep and draped in sterile fashion 9:25:42 Alarms reviewed by R. N. 9:25:42 Sharps counted by scrub and verified by R.N. 9:25:44 Use device set Radial Dx or PCI 9:25:45 ACIST Syringe (39967) opened to sterile field. 9:25:45 Medline Cath Pack ([id number]) opened to sterile field. 9:25:46 Bag Decanter () opened to sterile field. 9:25:47 ACIST Hand Control (58174) opened to sterile field. 9:25:48 ACIST Manifold (50934) opened to sterile field. 9:25:48 Tegaderm 4 x 4 (1626W) opened to sterile field. 9:25:48 MBrace Wrist Support ([id number]) opened to sterile field. 9:25:49 SHEATH 6FR Slender (801060) opened to sterile field. 9:25:50 DIAGNOSTIC WIRE .035 260cm J wire (572937) opened to sterile field. 9:27:33 Physician paged 9:30:27 Zero performed for pressure channel P1 9:31:29 0.9% NaCl 100 ml/hr I.V. was administered by Dee Dee Reyes RN; Per physician; 9:32:56 Physician arrived 9:32:56 --------ALL STOP TIME OUT------ 9:32:57 Final Timeout: patient, procedure, and site verified with staff and physician. All members of the team are in agreement. 9:32:59 Right Radial & Right Groin site verified by team. 9:33:02 Fire Safety Assessment: A--An alcohol-based skin anteseptic being used preoperatively., C--Open oxygen or nitrous oxide is being used., D--An ESU, laser, or fiber-optic light is being used. 9:33:07 Physical assessment completed. ASA score P 3 - A patient with severe systemic disease as per Kristian Woodward MD. 9:33:13 Sedation plan: IV Moderate Sedation Medication:Versed, Fentanyl 9:33:47 Versed 2 mg I.V. was administered by Dee Dee Reyes RN; for sedation; 9:33:52 Fentanyl 100 mcg I.V. was administered by Dee Dee Reyes RN; for sedation; 9:35:21 Procedure started. 9:35:24 Local anesthetic to right radial artery with Lidocaine 2% by Kristian Woodward MD.INITIAL ACCESS ONLY 9:35:30 A 6 Fr Short sheath was inserted into the Right Radial artery 9:36:08 A DIAGNOSTIC Ellsworth 110cm 5 Fr catheter (876012) was advanced over the wire and used for Procedure. 9:36:10 LV gram done using TOLEDO 9:36:13 Injector settings: Ml/sec: 5, Volume: 15, 9:36:14 Radial Cocktail (Verapomil 2mg/Nitro 400mcg/Heparin 1500units) 1 syringe I.A. was administered by Dee Dee Reyes RN; for vasodilation; 9:37:21 EF : 50 % 9:37:55 RCA angiography performed. 9:38:22 Versed 2 mg I.V. was administered by Dee Dee Reyes RN; for sedation; 9:38:25 Fentanyl 100 mcg I.V. was administered by Dee Dee Reyes RN; for sedation; 9:38:59 CHOICE PT Extra Support 182cm wire ([id number]) opened to sterile field. 9:39:00 INFLATOR Merit BasixCompak (CK5425) opened to sterile field. 9:39:05 GUIDE 6FR XBLAD 4.0 catheter ([id number]) opened to sterile field. 9:39:09 Catheter exchanged over wire. 9:39:15 6 Fr xblad 4 guide catheter was inserted over the wire 9:40:06 [place] [employer] [place] IVUS Catheter (88286J) opened to sterile field. 9:40:47 LCA angiography performed. 9:42:15 choice pt es wire advanced. 9:42:17 Wire advanced across lesion. 9:42:20 IVUS catheter advanced over wire. 9:42:22 IVUS pass to LAD lesion performed. 9:42:23 Heparin Bolus 4000 units I.V. was administered by Dee Dee Reyes RN; for anticoagulation; verified with dr woodward 9:43:53 Integrilin (Bolus 2mg/ml) 11.3 ml I.V. was administered by Dee Dee Reyes RN; for antiplatelet therapy; Wasted 8.7 ml of vial 9:44:24 IVUS catheter removed over wire. 9:44:30 Wire removed. 9:44:51 GUIDE 6FR AR 2.0 SH catheter ([id number]) opened to sterile field. 9:45:18 Catheter exchanged over wire. 9:45:25 6 Fr ar 2 sh guide catheter was inserted over the wire 9:46:50 choice pt es wire advanced. 9:47:55 Wire advanced across lesion. 9:48:40 Versed 2 mg I.V. was administered by Dee Dee Reyes RN; for sedation; 9:48:44 Fentanyl 100 mcg I.V. was administered by Dee Dee Reyes RN; for sedation; 9:48:59 Place stent Inflation Number: 1 A INTEGRITY RX 3.5 x 30 stent ([id number]) was prepped and advanced across the Prox RCA. The stent was deployed at 15 JENNIFER for 0:10 (min:sec). 9:49:44 Inflation number: 2 The stent balloon was then re-inflated across the Prox RCA to 21 JENNIFER for 0:10 (min:sec). 9:49:45 Stent catheter was removed intact over wire. 9:49:46 Wire removed. 9:49:47 Guide catheter removed. 9:49:49 TR BAND Large ([id number]) opened to sterile field. 9:50:05 Sheath removed intact; hemostasis achieved with Mechanical Compression to the Right Radial artery. 9:50:07 Procedure ended.(Physican Out) 9:52:32 Fluoroscopy time 06.60 minutes. 9:52:41 Flurop Dose total: 1769 9:52:41 Fluoroscopy dose: 1769 mGy 9:52:44 Contrast amount:Isovue 300 146ml. 9:52:46 Sharps counted by scrub and verified by R.N. 9:52:48 TR band inflated with 12cc of air. 9:52:49 Insertion/operative site no bleeding no hematoma. 9:52:54 Post right radial artery:stable, soft, clean and dry 9:52:55 Post Procedure Pulses reassessed and unchanged 9:53:03 Post-procedure physical assessment completed. ASA score P 3 - A patient with severe systemic disease as per Kristian Woodward MD. 9:53:04 Post procedure rhythm: unchanged. 9:53:07 Estimated blood loss: 10 ml 9:53:08 Post procedure instruction explained to patient.Patient verbalizes understanding. 9:53:08 Patient needs reinforcement of post procedure teaching. 9:53:29 Procedure type changed to Cath procedure, Diagnostic procedure, LHC, LHC w/Coronaries, FFR/IVUS, Intra-Coronary IVUS Initial, Sedation Charges, Moderate Sedation up to 15 minutes, PCI procedure, Coronary Stent, Coronary Stent Initial 9:54:22 Procedure and supply charges have been captured, reviewed, submitted and are correct. 9:54:25 Procedure Complication : No complications 9:54:26 Vital chart was stopped 9:54:27 See physician's report for complete and final results. 9:54:28 Report given to Pre/Post Procedure Room. 9:54:30 Patient transfered to Pre/Post Procedure Room with Stretcher. 9:54:31 Procedure ended. 9:54:31 Full Disclosure recording stopped 9:54:35 End room use (Document Last) 9:55:13 Plavix 600 mg P.O. was administered by Dee Dee Reyes RN; for antiplatelet therapy; Intervention Summary Intervention Notes Time ActionType Lesion and Equipment Action# Pressure Duration Attributes Used 9:48:59 Place stent Prox RCA INTEGRITY RX 1 15 00:10 3.5 x 30 stent ([id number]) 9:49:44 Reinflate Prox RCA INTEGRITY RX 2 21 00:10 stent 3.5 x 30 balloon stent ([id number]) Device Usage Item Name Manufacture Quantity Catalog Number Hospital Part Current Mini mal Lot# / Charge Number Stock Stock Serial# Code ACIST Acist 1 29441 091147 178854 330707 20 Syringe Medical (43407) Systems Inc Medline Cath Medline 1 [id number] 276992 33723 862555 5 Pack ([id number]) Bag Decanter Microtek 1 2001S 451948 56158 891848 5 (2001S) Medical Inc. ACIST Hand Acist 1 38528 578648 699834 286036 5 Control Medical (54452) Systems Inc ACIST Acist 1 57281 404703 070103 507328 5 Manifold Medical (14332) Systems Inc Tegaderm 4 x 3M 1 1626W 676873 933685 673996 5 4 (1626W) MBrace Wrist Advanced 1 140-0250-00 659722 49615 850418 5 Support Vascular (707298717) Dynamics SHEATH 6FR Terumo 1 [id number] 523102 322289 657499 5 Slender (80-1060) DIAGNOSTIC St Richard 1 860689 707179 305535 683463 30 WIRE .035 260cm J wire (243451) DIAGNOSTIC Terumo 1 40-3817 317076 697748 104643 5 Ellsworth 110cm 5 Fr catheter (594806) CHOICE PT [place] 1 [id number] 743708 022990 739644 5 Extra Scientific Support 182cm wire (7987642N5) INFLATOR Merit 1 QU0949 348831 281069 894714 15 [place] Arts Medical BasixCompak (AD8957) GUIDE 6FR Cardinal 1 [id number] 806965 611176 848512 3 XBLAD 4.0 Health catheter (31794756) GUIDE 6FR AR Medtronic 1 [id number] 279099 70436 664492 1 2.0 SH catheter (NO0IJ3BU) INTEGRITY RX Medtronic 1 [id number] 409540 691787 767281 5 [id number] 3.5 x 30 stent ([id number]) TR BAND Terumo 1 [id number] 803391 107718 030627 40 Large ([id number]) [place] 1 55826M 990809 671960 777753 8 [employer] [employer] [place] IVUS Catheter (58717H) Signature Audit [place] Stage Time Signature Unsigned Intra-Procedure 09/09/2018 Gerhard Bullock 9:56:31 AM RT(R) Signatures Monitor : Gerhard Bullock RT Signature : Date : Time : [id number] [place] [address]
[~2018-09-09 07:26] MED LIST changes: +DYAZIDE 37.5/251 CAP PO; +GLIMEPIRIDE4 MG PO; +K-TAB10 MEQ PO; +LASIX40 MG PO
[2018-09-09] MEDS ORDERED: GABAPENTIN100 MG PO (07:45)
[2018-09-09 07:54] VITALS: BP 155/79; Ht 177.8 cm; Wt 168.2 kg
[2018-09-09 08:18] LABS: BASOPHILS 0.3 % (0-2); CALC OSMOLALITY 284 mosm/kg (275-300); CALCIUM 9.6 mg/dL (8.5-10.1); CARBON DIOXIDE 23.9 mmol/L (21.0-32.0); CHLORIDE - SERUM 101 mmol/L (98-107); CREATININE - SERUM 0.9 mg/dL (0.6-1.3); EOSINOPHILS 3.5 % (0-7); HEMATOCRIT 45.2 % (42.0-54.0); HEMOGLOBIN 14.9 g/dL (13.5-17.5); IMMATURE GRANULOCYTES 0.4 % (0-5); LYMPHOCYTES 34.3 % (15-50); MCH 27.8 pg (26.0-34.0); MCV 84.3 fL (80.0-100.0); MEAN PLATELET VOLUME 10.8 fL (7.4-10.4); MONOCYTES 10.2 % (2-11); NEUTROPHILS 51.3 % (40-80); PLATELET COUNT 171 10x3/uL (130-400); POTASSIUM - SERUM 4.3 mmol/L (3.5-5.1); RBC 5.36 10x6/uL (4.20-6.10); RDW 15.3 % (11.5-14.5); SODIUM 138 mmol/L (136-145); UREA NITROGEN 25 mg/dL (7-18); WBC 9.3 10x3/uL (4.8-10.8); eGFR NON AFRICAN AMERICAN 89 mL/min (90-120)
[2018-09-09 08:20] LABS: GLUCOSE 190 mg/dL (74-106)
[2018-09-09 09:40] LABS: INR 1.02 (0.85-1.17); PROTIME 12.9 SECONDS (11.6-15.0)
[2018-09-09] MEDS ORDERED: PLAVIX75 MG PO (10:13)
--- NOTE | 2018-09-09 10:22 | NUR ---
1004 RECEIVED PT FROM BUSINESS CONTINUITY MANAGER, PT IS ALERT AND DENIES ANY C/O PAIN OR NAUSEA. NSR, DENIES ANY C/O CHEST PAIN. TR BAND IS CDI TO RIGHT WRIST, NO BLEEDING OR HEMATOMA NOTED AT SITE. CAP REFILL IS BRISK, FINGERS PINK AND WARM. PT DENIES ANY N/V DEFICIT TO HAND. WIST IMMOBILIZER IS IN PLACE, PT VERBALIZES UNDERSTANDING TO AVOID BENDING/ FLEXING RIGHT WRIST. CALL LIGHT IN REACH. 1015 SANDWICH AND PO FLUIDS SERVED. TR BAND IS CDI, FINGERS WARM AND CAP REFILL IS BRISK. VSS. FAMILY AT BEDSIDE, CALL LIGHT IN REACH.
--- NOTE | 2018-09-09 10:40 | NUR ---
1040 PT IS ALERT, HAS MINI 100% OF SANDWICH. TR BAND IS CDI, FINGERS WARM AND CAP REFILL IS BRISK. FAMILY AT BEDSIDE, CALL LIGHT IN REACH.
--- NOTE | 2018-09-09 10:44 | NUR ---
DIRECTOR [facility] HERE DOING ECHO ON PT PER ORDERS.
--- NOTE | 2018-09-09 11:00 | NUR ---
TR BAND IS CDI, FINGERS ARE WARM AND CAP REFILL IS BRISK. WRIST IMMOBILIZER IN PLACE. VSS. PT DENIES ANY C/O AT THIS TIME.
--- NOTE | 2018-09-09 11:14 | NUR ---
PT HAS VOIDED 300 CC CLEAR YELLOW URINE TO URINAL. IS ALERT AND DENIES ANY C/O PAIN OR NAUSEA. TR BAND IS CDI. FINGERS WARM AND CAP REFILL IS BRISK. VSS. AT BEDSIDE. CALL LIGHT IN REACH.
--- NOTE | 2018-09-09 11:19 | OP ---
PATIENT NAME: BARRERA WEEKS MEDICAL RECORD: [id number] :52 LOCATION:D.CAT ADMISSION DATE: SURGEON: MARCELO CLINE MD DATE OF OPERATION: 09/09/2018 PROCEDURES: 1. PTCA stent RCA. 2. Intravascular ultrasound. 3. Left heart catheterization. 4. Selective coronary angiography. 5. Left ventriculogram. INDICATION: Angina and coronary artery disease. PROCEDURE IN DETAIL: After informed consent was obtained and after a detailed description of risks, benefits as well as alternative therapies, the patient elected to proceed with angiogram and angioplasty. The right radial area was prepped and draped in normal sterile fashion. Right radial artery was cannulated via modified Seldinger technique with placement of 6-Nigerien sheath. All catheters exchanged through this sheath. FINDINGS: Left ventriculogram was performed in standard 30-degree TOLEDO view, reveals good cardiac wall motion throughout all segments. Overall ejection fraction estimated 60%. SELECTIVE CORONARY ANGIOGRAPHY: 1. Left main is with no significant angiographic disease. 2. Left anterior descending has mild irregularities, no flow-limiting stenosis. No stenosis greater than 20% confirmed by intravascular ultrasound. 3. Left circumflex has mild irregularities, but no flow-limiting stenosis. 4. Right coronary artery has 75% stenosis with pressure damping at the ostium. PTCA STENT OF THE RCA: The stent used was a 3.5 x 30 mm Integrity. Result was 0% residual stenosis. OVERALL IMPRESSION: Successful percutaneous transluminal coronary angioplasty stent of the right coronary artery going from 75% initial stenosis to 0% residual. TRANSINT:[id number] Voice Confirmation ID: [id number] DOCUMENT ID: [id number] MARCELO CLINE MD at 1119 CC: [id number] DICTATION DATE: 09/09/18 0955 SOLDERING TECHNICIAN: 09/09/18 1041 [id number] [place] [address]
--- NOTE | 2018-09-09 11:53 | NUR ---
pt sleeping intermittently, tr band is cdi, fingers warm and cap refill is BRISK. NSR, DENIES ANY C/O CHEST PAIN. AT BEDSIDE. RESP WITH EASE.
--- NOTE | 2018-09-09 12:29 | NUR ---
TR BAND IS CDI, FINGERS WARM AND CAP REFILL IS BRISK. PT IS ALERT AND DENIES ANY C/O. DR CLINE HAS ROUNDED ON PT.
--- NOTE | 2018-09-09 13:12 | NUR ---
PT HAS VOIDED 400 CC CLEAR YELLOW URINE TO URINAL. 2 CC OF AIR WEANED FROM TR BAND WITH NO BLEEDING NOTED. FINGERS WARM, CAP REFILL IS BRISK. SINUS BJ AT 57, DENIES ANY C/O CHEST PAIN. AT BEDSIDE.
--- NOTE | 2018-09-09 13:21 | NUR ---
3 CC OF AIR WEANED FROM TR BAND WITH NO BLEEDING NOTED.
--- NOTE | 2018-09-09 13:44 | NUR ---
3 CC OF AIR WEANED FROM TR BAND WITH NO BLEEDING NOTED, FINGERS WARM AND CAP REFILL IS BRISK. PT IS ALERT AND DENIES ANY C/O.
--- NOTE | 2018-09-09 14:06 | NUR ---
1350 ALL REMAINING AIR WEANED FROM TR BAND WITH NO BLEEDING NOTED. FINGERS WARM, CAP REFILL IS BRISK. 1400 IV DC'D WITH CATH INTACT AND PT IS DRESSING FOR DC TO HOME WITH ASSIST. DENIES ANY C/O.
--- NOTE | 2018-09-09 14:18 | NUR ---
1415 PT HAS DRESSED FOR DC TO HOME, VOIDED ADDITIONAL 400 CC CLEAR YELLOW URINE TO URINAL. DRESSING REMAINS CDI TO RIGHT WRIST, FINGERS WARM AND CAP REFILL IS BRISK, RADIAL PULSE PALPABLE. PT IS ALERT AND DENIES ANY C/O. WRIST IMMOBILIZER IN PLACE. PT DENIES ANY NV DEFICIT TO HAND. PT ESCORTED TO PRIVATE AUTO VIA WC BY NURSE WITH DRIVING HIM HOME. PT HAS ALL PERSONAL BELONGINGS AND DC INSTRUCITONS AT TIME OF DC.
--- NOTE | 2018-09-10 15:29 | EC ---
PATIENT:BARRERA WEEKS DATE OF SERVICE: 09/09/18 SEX: M MEDICAL RECORD: [id number] DATE OF : 52 LOCATION:D.CAT AGE OF PATIENT: 68 ADMISSION DATE: 09/09/18 REFERRING PHYSICIAN: INTERPRETING PHYSICIAN: MARCELO WOODWARD MD ECHOCARDIOGRAM REPORT ECHO CHARGES 4 ECHO COMPLETE Date: 09/09/18 CLINICAL DIAGNOSIS: DYSPNEA/ HX CAD ECHOCARDIOGRAPHIC MEASUREMENTS (adult normal given) AC root (d.<3.7cm) 3.9 cm LV Septum d (<1.2 cm> 2.1 cm Valve Excursion 2.9 cm LV Septum (systole) 2.4 cm Left Atria (s.<4.0cm> 4.0 cm LVPW d(<1.2cm) 1.7 cm RV (d.<2.3cm) 3.5 cm LVPW (sytole) 2.2 cm LV diastole(<5.6CM) 6.0 cm MV E-F(>70mm/sec) cm LV systole 4.0 cm LVOT Diameter 2.5 cm MV exc.(>10mm) 2.3 cm Est.ejection fraction (50-75%) % DOPPLER: LVIT cm/sec A 51.0 cm/sec E 71.0 cm/sec LA cm/sec RVSP 24 mmHg LVOT 105 cm/sec AOP1/2T m/s Asc. Ao 171 cm/sec RVOT 88 cm/sec RA cm/sec PA 115 cm/sec AV Gradient Peak 11.65mmHg AV Mean 6.35 mmHg AV Area 3.4 cm MV Gradient Peak 4.30 mmHg MV Mean 1.60 mmHg MV Area cm COMMENTS: Superintendent Storage Area: Ernie LAW Labor Relations Teacher: 1 Dr. Woodward TAPE# PACS Pericardial Effusion N DATE OF SERVICE: 09/09/2018 FINDINGS: 1. Left ventricular chamber size is within normal limits. Left ventricular systolic function is normal. Overall ejection fraction estimated at 60%. 2. Left ventricular hypertrophy is present, concentric with no evidence of outflow tract hypertrophy. 3. Left atrium is upper limits of normal at 4.0 cm. Right atrium and right ventricular chamber sizes are within normal limits. 4. Valvular structures have normal structure and motion. ECHOCARDIOGRAM REPORT [id number] BARRERA WEEKS 5. Doppler interrogation reveals trace tricuspid regurgitation. No other valvular insufficiency or stenosis. 6. No evidence of pericardial effusion or left ventricular thrombus. TRANSINT:[id number] Voice Confirmation ID: [id number] DOCUMENT ID: [id number] MARCELO WOODWARD MD at 1529 CC: [id number] DICTATION DATE: 09/10/18 1153 PULP TESTER: 09/10/18 1320 DEP CLI 09/09/18 [id number] [place] [id number]
== END 2018-09-09 14:15 | disposition home or self-care (01) ==
LOC: D.CATH 07:26
PROVIDERS: ATTEND Internal Medicine Interventional Cardiology
DX: I25.119 Atherosclerotic heart disease of native coronary artery with unspecified angina pectoris (principal); I51.7 Cardiomegaly; Z01.812 Encounter for preprocedural laboratory examination

== ENCOUNTER 2020-12-05 06:10 | Day surgery (SDC) | payer MEDICARE, BC ==
[~2020-12-05] VITALS: Ht 177.8 cm; Wt 164.2 kg
--- NOTE | ~2020-12-05 | OP ---
PATIENT NAME: BARRERA WEEKS MEDICAL RECORD: [id number] :52 LOCATION:[facility] ADMISSION DATE: SURGEON: ROGERIO MULLINS MD DATE OF OPERATION: 12/05/2020 PREOPERATIVE DIAGNOSIS: Left tongue lesion and left pinna lesion. POSTOPERATIVE DIAGNOSIS: Left tongue lesion and left pinna lesion. PROCEDURE: 1. Wide local excision and closure of left pinna lesion, incision was 3 cm long. 2. Wide local excision, left tongue lesion wound was 1 x 3 cm. SURGEON: Rogerio Mullins MD ANESTHESIA: General orotracheal. BLOOD LOSS: Less than 5 cc. 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 Left tongue lesion, frozen section diagnosis benign. COMPLICATIONS: None. DISPOSITION: Recovery, stable. DESCRIPTION OF PROCEDURE: He was brought to the operating room and placed in supine position, sedated and intubated by anesthesia. The left ear was addressed first. It was prepped with Betadine. He had an ulcerative painful lesion on the superior pinna about the 1 o'clock position below that there was a crusted papillomatous appearing lesion and below that there was a pigmented lesion all next to each other. This was excised, long section basically from 12 o'clock to 3 o'clock of the pinna was excised, long excision about a centimeter wide taken all of these lesions together. It was undermined anteriorly, posteriorly, and closed with interrupted subcutaneous 5-0 Vicryl. Skin was closed with running 5-0 Prolene. Antibiotic ointment was applied and the tongue was addressed. Rubber tooth guard with a bite block was placed between the right teeth and the molars and the tongue was examined. At this lesion, it was almost papillomatous in appearance, but it was bulky, thick, and extending deeply into the tongue musculature about 2-3 cm back from the tip of the tongue. This was grasped and marked with cautery for the edges. Cautery was used to make the mucosal incisions and then scissors was used to cut, making sure to get at least small margins for diagnosis of excision purposes. This was taken and then sent for frozen to see if wide excision need to be made, but the frozen section diagnosis was benign lesion, so the lesion was completely excised. The mouth was rinsed with Peridex before and after and was rinsed again when the wound was opened and then this was closed with interrupted horizontal mattress 3-0 Vicryl and then the lateral tongue was closed with interrupted 3-0 Vicryl. He was awakened, extubated, and transported to recovery in good condition. No complications. TRANSINT:[id number] Voice Confirmation ID: [id number] DOCUMENT ID: [id number] OPERATIVE REPORT [id number] BARRERA WEEKS ERIC MD CC: [id number] DICTATION DATE: 12/05/20 1026 PROGRAMMER OPERATOR NUMERICAL CONTROL: 12/06/20 2351 [facility] 12/05/20 [id number] [place] [id number]
[2020-12-05 05:58] LABS: CALC OSMOLALITY 285 mosm/kg (275-300); CALCIUM 9.5 mg/dL (8.5-10.1); CARBON DIOXIDE 24.9 mmol/L (21.0-32.0); CHLORIDE - SERUM 103 mmol/L (98-107); POTASSIUM - SERUM 4.3 mmol/L (3.5-5.1); SODIUM 137 mmol/L (136-145); UREA NITROGEN 17 mg/dL (7-18); eGFR NON AFRICAN AMERICAN 79 mL/min (90-120)
[2020-12-05 06:01] LABS: GLUCOSE 281 mg/dL (74-106)
[2020-12-05 06:06] LABS: APTT 26.2 SECONDS (22.8-39.4); INR 1.12 (0.85-1.17); PROTIME 13.4 SECONDS (11.6-15.0)
[~2020-12-05 06:10] MED LIST changes: +GABAPENTIN100 MG PO; +JANTOVEN10 MG PO
[2020-12-05] MEDS ORDERED: TOPROL XL50 MG PO ×2 (07:11→07:12)
[2020-12-05] MEDS ORDERED: VITAMIN D21250 MC1 PO (07:13)
[2020-12-05 07:26] VITALS: BP 127/64; Ht 177.8 cm; Wt 164.2 kg
[2020-12-05 08:54] LABS: BASOPHILS 0.4 % (0-2); EOSINOPHILS 3.8 % (0-7); HEMATOCRIT 45.3 % (42.0-54.0); HEMOGLOBIN 15.1 g/dL (13.5-17.5); LYMPHOCYTES 31.2 % (15-50); MCH 28.1 pg (26.0-34.0); MCHC 33.2 g/dL (31.0-37.0); MCV 84.6 fL (80.0-100.0); MEAN PLATELET VOLUME 10.3 fL (7.4-10.4); MONOCYTES 6.6 % (2-11); PLATELET COUNT 143 10x3/uL (130-400); RBC 5.36 10x6/uL (4.20-6.10); RDW 15.1 % (11.5-14.5); WBC 10.4 10x3/uL (4.8-10.8)
--- NOTE | 2020-12-05 10:53 | NUR ---
1050 PT WANTED BLOOD PRESSURE CUFF OFF AND O2 SENSOR OFF, SITTING ON SIDE OF BED. V.S. WNL. O2 CONTINUES AT 2L NC, AT SIDE. TIME FRAME FOR TODAYS' STAY GIVEN.
--- NOTE | 2020-12-05 12:57 | NUR ---
1115 O2 REMOVED AND PATIENT ON ROOM AIR, SAT 96%
--- NOTE | 2020-12-05 12:59 | NUR ---
1215 DISCHARGE INSTRUCTIONS GIVEN TO PATIENT. PATIENT'S IV D/C'D WITH TIP INTACT AND PATIENT UP TO BATHROOM TO VOID/DRESS. DISCHARGED VIA WHEELCHAIR TO PRIVATE CAR.
== END 2020-12-05 12:15 | disposition home or self-care (01) ==
LOC: D.OPS 06:10
PROVIDERS: Anesthesiology; ATTEND Otolaryngology
DX: K14.8 Other diseases of tongue (principal); H61.192 Noninfective disorders of pinna, left ear